=== PATIENT | female | born 1960 | race Caucasian/White ===

== ENCOUNTER → 2020-06-27 12:35 | Outpatient (CLI) | payer OTHER, SELFPAY ==
--- NOTE | 2020-06-27 | IMM_PTH ---
PATIENT: FAVIAN READ LOC: [facility] U#:[id number] AGE/SX: 64/F ROOM: RE06/27/[address]: NOEMY Stone : 1960 BED: DIS: SPEC #: [id number] RECD: 06/28/20 13:35 STATUS: MARTHA RETavon #: [id number] JENNY: 06/27/20 00:[address]: Izabela Meade NP DEPT: IMMUNOHISTOCHEMISTRY RECD BY: Michelle Schofield ENTERED: 06/28/20 13:35 SP TYPE: IMMUNO OTHR DR: No Primary Care Phys Tissues: Endometrium, NOS Procedures: p16 (initial) KI-67 (add) PHYSICIAN & INSTITUTION [place] [id number] SPECIMEN INFORMATION: Tissue Source: Endometrial biopsy Clinical Info: PMB Specimen Number: [id number] CPT code: 19512, 93541 METHODOLOGY: Deparaffinized sections of prefer/formalin-fixed tissue or PAP/DQ stained slides are incubated with monoclonal/polyclonal antibodies/oligonucleotide probes. Localization is made via biotin free immunoperoxidase method. Appropriate controls are performed and reacted as expected. Results on target cell population are indicated in the following table: RESULTS: ANTIBODY / CLONE RESULT P16 (E6H4) negative Ki-67 (30-9) positive, low These tests were developed and their performance characteristics determined by [facility]. They may not have been cleared or approved by the U.S. Food and Drug Administration. The FDA has determined that such clearance or approval is not necessary. The above immunohistochemical/dualISH markers are ordered and reviewed by the Pathologist. INTERPRETATION: Endometrial biopsy: Squamous mucosal fragment with no evidence of dysplasia. AM:gely 06/29/2020
--- NOTE | 2020-06-27 10:30 | EMB_PTH ---
PATIENT: FAVIAN READ LOC: [facility] U#:[id number] AGE/SX: 64/F ROOM: RE06/27/[address]: NOEMY Stone : 1960 BED: DIS: SPEC #: [id number] RECD: 06/27/20 12:12 STATUS: MARTHA LADARIUS #: [id number] JENNY: 06/27/20 10:[address]: Izabela Meade NP DEPT: SURGICAL PATHOLOGY RECD BY: Adrienne Deleon ENTERED: 06/27/20 12:45 SP TYPE: ENDOM BX/C IMELDA DR: Sindi Primary Care Phys Tissues: Endometrium, NOS Procedures: Surgery Specimen Level IV HEADER OPERATION: Endometrial biopsy PRE-OP DIAGNOSIS: PMB TISSUE SUBMITTED: Endometrial biopsy MICROSCOPIC DIAGNOSIS Endometrium, biopsy: Simple to focal complex hyperplasia with focal cytologic atypia. Detached fragment of squamous epithelium with mild atypia. AM:gely 06/28/2020 COMMENT Results from immunohistochemistry ([id number]) for surrogate HPV marker (p16) will be reported separately. Case has been reviewed in consultation with Dr. White who concurs with the above diagnosis. IDC:SJ MICROSCOPIC DESCRIPTION Slides are reviewed. GROSS DESCRIPTION Received is one container labeled with the patient's name and not further designated. The specimen consists of multiple fragments of pink hemorrhagic soft tissue that in aggregate measure 2.5 x 2 x 0.3 cm. The specimen is totally submitted in one cassette. / GEORGE:gely 06/27/20 TC:? CPT: 71821
[2020-06-27 11:54] VITALS: BMI 38.7
[2020-06-29 18:04] LABS: HPV APTIMA, High Risk Positive (Negative)
== END ==
PROVIDERS: Referring Provider Nurse Practitioner Women's Health; Visit Provider Nurse Practitioner Women's Health
DX: Z12.4 Encounter for screening for malignant neoplasm of cervix (principal)
CPT/HCPCS: 87624; 88175; 88305; 88341; 88342; G0145

== ENCOUNTER → 2020-06-28 11:08 | Outpatient (CLI) | payer OTHER, SELFPAY ==
[2020-06-28 10:18] VITALS: BMI 38.8
[2020-06-28 12:14] LABS: Absolute Lymphocyte Count 1.33 X10^3/uL (0.83-4.51); Absolute Neutrophil Count 4.1 X10^3/uL (2.0-7.7); Basophil# 0.05 X10^3/uL; Basophil% 0.8 % (0-1); Eosinophil# 0.29 X10^3/uL; Eosinophils% 4.6 % (0-5); Hematocrit 40.1 % (37-47); Hemoglobin 13.3 g/dL (12.0-15.0); Lymphocyte # 1.33 X10^3/ul (4.0); Lymphocyte % 21.2 % (19-41); Mean Corp Hgb Conc 33.2 g/dL (32-36); Mean Corpuscular Hgb 30.4 pg (27.0-32.0); Mean Corpuscular Volume 91.6 fL (81-99); Mean Platelet Vol. 10.9 fl (6.2-12.0); Monocyte# 0.45 X10^3/uL; Monocyte% 7.2 % (0-10); NRBC Flagged by Analyzer 0 % (0-5); Neutrophil # 4.13 X10^3/uL (2.7-7.7); Neutrophil % 65.7 % (47-70); Platelet Count 268 K/mm3 (150-450); RBC Distribution Width SD 43.2 fl (35.1-43.9); Red Blood Count 4.38 M/mm3 (4.2-5.4); White Blood Count 6.3 K/mm3 (4.4-11.0)
[2020-06-28 12:35] LABS: ALB/GLOB Ratio 1.1 RATIO (0.9-2.4); AST(SGOT) 29 U/L (15-37); Alanine Aminotransfer ALT/SGPT 51 U/L (13-56); Albumin, Serum 4.1 g/dL (3.2-5.0); Alkaline Phosphatase 109 U/L (45-117); Anion Gap 7 (5-15); BUN 13 mg/dL (7-18); BUN/Creat Ratio 12.7 RATIO (10-20); Calcium,Total 9.3 mg/dL (8.5-10.1); Chloride 104 mmol/L (98-107); Cholesterol 217 mg/dL (200); Creatinine, Serum 1.02 mg/dL (0.55-1.02); EST Glomerular Filtration Rate 59 mL/min (>60); Est Glom Filt Rate - Afr Amer 71 mL/min (>60); Globulin 3.8 g/dL (2.2-4.2); Glucose 107 mg/dL (74-106); High Density Lipoprotein 45 mg/dL; Potassium 3.6 mmol/L (3.5-5.1); Protein, Total 7.9 g/dL (6.4-8.2); Sodium Level 141 mmol/L (136-145); T4 Free Direct 0.93 ng/dL (0.76-1.46); Thyroid Stim Hormone (TSH) 5.12 uIU/mL (0.358-3.74); Triglycerides 213 mg/dL; Very Low Density Lipoprotein 43 mg/dL (5-40)
[2020-06-28 12:43] LABS: Hemoglobin A1c 5.1 % (3.8-5.6)
== END ==
PROVIDERS: PCP Internal Medicine; Referring Provider Internal Medicine; Visit Provider Internal Medicine
DX: I10 Essential (primary) hypertension (principal); E66.9 Obesity, unspecified
CPT/HCPCS: 36415; 80053; 80061; 83036; 84439; 84443; 85025

== ENCOUNTER → 2020-08-23 13:04 | Outpatient (CLI) | payer OTHER, SELFPAY ==
[2020-08-23 12:39] VITALS: BMI 38.0
[2020-08-23 15:37] LABS: Anion Gap 6 (5-15); BUN 12 mg/dL (7-18); BUN/Creat Ratio 10.7 RATIO (10-20); Calcium,Total 9.7 mg/dL (8.5-10.1); Chloride 100 mmol/L (98-107); Creatinine, Serum 1.12 mg/dL (0.55-1.02); EST Glomerular Filtration Rate 53 mL/min (>60); Est Glom Filt Rate - Afr Amer 64 mL/min (>60); Glucose 100 mg/dL (74-106); Potassium 4.6 mmol/L (3.5-5.1); Sodium Level 138 mmol/L (136-145)
== END ==
PROVIDERS: Physician Assistant; PCP Internal Medicine; Visit Provider Internal Medicine
DX: I10 Essential (primary) hypertension (principal)
CPT/HCPCS: 36415; 80048

== ENCOUNTER → 2020-12-21 15:48 | Outpatient (CLI) | payer OTHER, SELFPAY ==
[2020-12-21 17:21] LABS: Anion Gap 11 (5-15); BUN 15 mg/dL (7-18); BUN/Creat Ratio 14.3 RATIO (10-20); Calcium,Total 9.8 mg/dL (8.5-10.1); Chloride 97 mmol/L (98-107); Creatinine, Serum 1.05 mg/dL (0.55-1.02); EST Glomerular Filtration Rate 57 mL/min (>60); Est Glom Filt Rate - Afr Amer 69 mL/min (>60); Glucose 117 mg/dL (74-106); Potassium 3.7 mmol/L (3.5-5.1); Sodium Level 137 mmol/L (136-145)
== END ==
PROVIDERS: PCP Internal Medicine; Referring Provider Internal Medicine; Visit Provider Internal Medicine
DX: I10 Essential (primary) hypertension (principal)
CPT/HCPCS: 36415; 80048

== ENCOUNTER → 2021-11-13 | Outpatient (CLI) | payer OTHER, SELFPAY ==
[2021-11-13 12:31] LABS: Absolute Lymphocyte Count 1.17 X10^3/uL (0.83-4.51); Absolute Neutrophil Count 3.8 X10^3/uL (2.0-7.7); Basophil# 0.06 X10^3/uL; Eosinophil# 0.26 X10^3/uL; Eosinophils% 4.5 % (0-5); Hematocrit 39.6 % (37-47); Hemoglobin 13.6 g/dL (12.0-15.0); Lymphocyte # 1.17 X10^3/ul (0.83-4.51); Lymphocyte % 20.2 % (19-41); Mean Corp Hgb Conc 34.3 g/dL (32-36); Mean Corpuscular Hgb 31.7 pg (27.0-32.0); Mean Corpuscular Volume 92.3 fL (81-99); Mean Platelet Vol. 10.8 fl (6.2-12.0); Monocyte# 0.45 X10^3/uL; Monocyte% 7.8 % (0-10); NRBC Flagged by Analyzer 0 % (0-5); Neutrophil # 3.83 X10^3/uL (2.7-7.7); Platelet Count 260 K/mm3 (150-450); RBC Distribution Width CV 13.3 % (11.6-14.6); RBC Distribution Width SD 44.9 fl (35.1-43.9); Red Blood Count 4.29 M/mm3 (4.2-5.4); White Blood Count 5.8 K/mm3 (4.4-11.0)
[2021-11-13 13:09] LABS: ALB/GLOB Ratio 1.1 RATIO (0.9-2.4); AST(SGOT) 33 U/L (15-37); Alanine Aminotransfer ALT/SGPT 61 U/L (13-56); Alkaline Phosphatase 105 U/L (45-117); Anion Gap 6 (5-15); BUN 15 mg/dL (7-18); BUN/Creat Ratio 15.6 RATIO (10-20); Calcium,Total 9.5 mg/dL (8.5-10.1); Chloride 107 mmol/L (98-107); Cholesterol 216 mg/dL (200); Creatinine, Serum 0.96 mg/dL (0.55-1.02); EST Glomerular Filtration Rate 63 mL/min (>60); Est Glom Filt Rate - Afr Amer 76 mL/min (>60); Globulin 3.8 g/dL (2.2-4.2); Glucose 109 mg/dL (74-106); High Density Lipoprotein 40 mg/dL; Potassium 3.7 mmol/L (3.5-5.1); Protein, Total 7.8 g/dL (6.4-8.2); Sodium Level 141 mmol/L (136-145); Triglycerides 204 mg/dL; Very Low Density Lipoprotein 41 mg/dL (5-40)
== END | disposition home or self-care (01) ==
LOC: BIMLAB 09:09
PROVIDERS: PCP Internal Medicine; Referring Provider Internal Medicine; Visit Provider Internal Medicine
DX: I10 Essential (primary) hypertension (principal)
CPT/HCPCS: 36415; 80053; 80061; 85025

== ENCOUNTER → 2022-12-27 | Outpatient (CLI) | payer OTHER, SELFPAY ==
[2022-12-27 16:32] LABS: Absolute Lymphocyte Count 1.52 X10^3/uL (0.83-4.51); Absolute Neutrophil Count 5.3 X10^3/uL (2.0-7.7); Basophil# 0.06 X10^3/uL; Basophil% 0.8 % (0-1); Eosinophil# 0.22 X10^3/uL; Eosinophils% 2.8 % (0-5); Hemoglobin 13.2 g/dL (12.0-15.0); Lymphocyte # 1.52 X10^3/ul (0.83-4.51); Lymphocyte % 19.7 % (19-41); Mean Corpuscular Hgb 30.4 pg (27.0-32.0); Mean Corpuscular Volume 92.2 fL (81-99); Mean Platelet Vol. 11.3 fl (6.2-12.0); Monocyte# 0.57 X10^3/uL; Monocyte% 7.4 % (0-10); NRBC Flagged by Analyzer 0 % (0-5); Neutrophil # 5.33 X10^3/uL (2.7-7.7); Neutrophil % 68.9 % (47-70); Platelet Count 244 K/mm3 (150-450); RBC Distribution Width CV 13.2 % (11.6-14.6); RBC Distribution Width SD 44.3 fl (35.1-43.9); Red Blood Count 4.34 M/mm3 (4.2-5.4); White Blood Count 7.7 K/mm3 (4.4-11.0)
[2022-12-27 18:10] LABS: ALB/GLOB Ratio 1.1 RATIO (0.9-2.4); AST(SGOT) 22 U/L (15-37); Alanine Aminotransfer ALT/SGPT 39 U/L (13-56); Albumin, Serum 4.1 g/dL (3.2-5.0); Alkaline Phosphatase 93 U/L (45-117); Anion Gap 9 (5-15); BUN 17 mg/dL (7-18); BUN/Creat Ratio 13.2 RATIO (10-20); Chloride 101 mmol/L (98-107); Cholesterol 212 mg/dL (200); Creatinine, Serum 1.29 mg/dL (0.55-1.02); EST Glomerular Filtration Rate 45 mL/min (>60); Est Glom Filt Rate - Afr Amer 54 mL/min (>60); Globulin 3.8 g/dL (2.2-4.2); Glucose 103 mg/dL (74-106); High Density Lipoprotein 44 mg/dL; Potassium 3.2 mmol/L (3.5-5.1); Protein, Total 7.9 g/dL (6.4-8.2); Sodium Level 138 mmol/L (136-145); Triglycerides 291 mg/dL; Very Low Density Lipoprotein 58 mg/dL (5-40)
== END | disposition home or self-care (01) ==
LOC: BIMLAB 15:46
PROVIDERS: PCP Internal Medicine; Visit Provider Internal Medicine
DX: I10 Essential (primary) hypertension (principal)
CPT/HCPCS: 36415; 80053; 80061; 85025

== ENCOUNTER → 2023-01-03 | Outpatient (CLI) | payer OTHER, SELFPAY ==
--- NOTE | 2023-01-03 10:26 | US_ITS ---
STUDY: ABDOMINAL ULTRASOUND - RIGHT UPPER QUADRANT REASON FOR VISIT: Female, 62 years old RUQ Tenderness TECHNIQUE: Ultrasound evaluation of the right upper quadrant was performed with real-time and static pate-scale imaging. TECHNICAL QUALITY: Limited. Examination limited by bowel gas. COMPARISON: None. FINDINGS: Liver: The liver measures 19.4 cm. There is increased echogenicity consistent with fatty infiltration. The bile ducts are within normal limits. There is hepatic color flow. The direction of portal flow is hepatopetal. There are several round anechoic structure identified within the liver, possible with liver cysts, the one in the left liver lobe seen anteriorly measuring 3.8 x 3.8 x 3.9 cm and the second seen within the right liver lobe adjacent to the dome measuring 2.2 x 2.7 x 1.7 cm. Gallbladder: Normal distended gallbladder. The gallbladder wall measures 2.2 mm. There is a negative sonographic Mitchell''s sign. There is no pericholecystic fluid. A mobile gallstone measuring 2.4 x 2.3 x 2.0 cm is seen. Common Bile Duct (C.B.D.): The common bile duct measures 3.9 mm. Pancreas: Normal size of the head, body and tail of the pancreas. There is normal echogenicity of the pancreas. There is no demonstrated pancreatic mass or cyst. Right Kidney: Normal size of the right kidney. The right kidney measures 10.4 x 4.9 x 4.5 cm. Normal renal cortex. The right cortex measures 1.3 cm. There is no demonstrated renal mass or cyst. There is no right hydronephrosis. US/Abdomen Limited IMPRESSION: Gallstone with no signs of acute cholecystitis. Diffuse fatty liver, along with liver cyst as described. Otherwise unremarkable right upper quadrant ultrasound. Electronically Signed: Emeli Medrano MD at 18:07 EDT ,
== END | disposition home or self-care (01) ==
LOC: US 10:25
PROVIDERS: PCP Internal Medicine; Referring Provider Internal Medicine; Visit Provider Internal Medicine
DX: R10.811 Right upper quadrant abdominal tenderness (principal)
CPT/HCPCS: 76705

== ENCOUNTER → 2023-01-14 | Outpatient (CLI) | payer OTHER, SELFPAY ==
[2023-01-14 16:04] LABS: Anion Gap 6 (5-15); BUN 14 mg/dL (7-18); BUN/Creat Ratio 9.3 RATIO (10-20); Calcium,Total 9.5 mg/dL (8.5-10.1); Chloride 103 mmol/L (98-107); EST Glomerular Filtration Rate 38 mL/min (>60); Est Glom Filt Rate - Afr Amer 45 mL/min (>60); Glucose 119 mg/dL (74-106); Potassium 3.7 mmol/L (3.5-5.1); Sodium Level 140 mmol/L (136-145)
== END | disposition home or self-care (01) ==
LOC: BIMLAB 14:19
PROVIDERS: PCP Internal Medicine; Referring Provider Internal Medicine; Visit Provider Internal Medicine
DX: E87.6 Hypokalemia (principal)
CPT/HCPCS: 36415; 80048

== ENCOUNTER → 2023-04-03 | Outpatient (CLI) | payer OTHER, SELFPAY ==
[2023-04-03 13:05] LABS: Anion Gap 5 (5-15); BUN 17 mg/dL (7-18); BUN/Creat Ratio 17.2 RATIO (10-20); Calcium,Total 9.2 mg/dL (8.5-10.1); Chloride 108 mmol/L (98-107); Creatinine, Serum 0.99 mg/dL (0.55-1.02); EST Glomerular Filtration Rate 60 mL/min (>60); Est Glom Filt Rate - Afr Amer 73 mL/min (>60); Glucose 106 mg/dL (74-106); Potassium 4.1 mmol/L (3.5-5.1); Sodium Level 141 mmol/L (136-145)
[2023-04-03 13:11] LABS: Vitamin D,25 Hydroxy 13.1 ng/mL
== END | disposition home or self-care (01) ==
LOC: BIMLAB 09:49
PROVIDERS: PCP Internal Medicine; Referring Provider Internal Medicine; Visit Provider Internal Medicine
DX: K52.9 Noninfective gastroenteritis and colitis, unspecified (principal); I10 Essential (primary) hypertension
CPT/HCPCS: 36415; 80048; 82306

== ENCOUNTER → 2023-05-02 | Outpatient (CLI) | payer OTHER, SELFPAY ==
--- NOTE | 2023-05-02 14:00 | BD_ITS ---
STUDY: DUAL ENERGY X-RAY ABSORPTIOMETRY / DXA REASON FOR EXAM: Female, 62 years old. Post Menopausal TECHNIQUE: Bone Mineral Density (BMD) measurements of lumbar spine and bilateral hips were obtained. COMPARISON: None. FINDINGS: Lumbar Spine (L1-L4): g/cm2 (0.967) / T-score (-0.7) / Z-score (0.8) Findings are suggestive of normal bone density with a low fracture risk. Left Femur Total: g/cm2 (0.896) / T-score (-0.4) / Z-score (0.7) Left Femoral Neck: g/cm2 (0.614) / T-score (-2.1) / Z-score (-0.8) Right Femur Total: g/cm2 (0.878) / T-score (-0.5) / Z-score (0.5) Right Femoral Neck: g/cm2 (0.679) / T-score (-1.5) / Z-score (-0.2) BD/Dexa Bone Density Study IMPRESSION: The patient is considered osteopenic as outlined below according to World Daren Organization (WHO) criteria with a high fracture risk. Reference Information: The T-score is the number of standard deviations above or below the standard which is normal for young adults at their peak bone mineral density. The World Health Organization (WHO) interprets the T-scores as follows: Above -1 Normal bone density Between -1 and -2.5 Osteopenia Equal to / or below -2.5 Osteoporosis As a practical clinical guideline, osteopenia may be graded as follows: Mild -1 through -1.5 Moderate -1.6 through -2.0 Severe -2.1 through -2.4 The Z-score is the number of standard deviations above or below age-matched controls. A Z-score of less than -1.5 would be considered abnormal. References: 1. NIH Osteoporosis and Related Bone Diseases www osteo.org 2. International Society for Clinical Densitometry www iscd.org 3. National Osteoporosis Foundation www nof.org Electronically Signed: Dain Marks MD at 8:55 EST ,
--- OUTSIDE RECORDS SUMMARY | 2023-05-02 16:39 | XMS RPT_ITS | CCD ---
Author Name Unknown Address [address] [place] [address] Organization [facility] Care Team Providers Care Cane Burner Name Role Phone Unavailable Primary Care Provider Unavailabl e Oleghe, Efewongbe B Primary Care Provider Oleghe, Efewongbe B Primary Care Provider Heather SENIOR ANDROID SOFTWARE ENGINEER - ENTERTAINMENT USHER, Yvrose Unavailable [phone] Crystal SENIOR ANDROID SOFTWARE ENGINEER - ENTERTAINMENT USHER Jessica Unavailable [phone] Unavailable Primary Care Provider Unavailabl e OLEGHE, EFEWONGBE Primary Care Unavailable CRYSTAL, JESSICA Attending Unavailable OLEGHE, EFEWONGBE Primary Care Unavailable CRYSTAL, JESSICA Attending Unavailable CRYSTAL, JESSICA Attending Unavailable CRYSTAL, JESSICA Referring Unavailable OLEGHE, EFEWONGBE Primary Care Unavailable CRYSTAL, JESSICA Referring Unavailable OLEGHE, EFEWONGBE Primary Care Unavailable CRYSTAL, JESSICA Attending Unavailable Allergies Allergy Classification Reported Allergen(s) Allergy Type Date of Onset Reaction(s) Facility NSAIDs (4 sources) [facility] Drug Allergy 1 [facility] (5 sources) Propoxyphene Drug Allergy 1 Other (See Comments) [facility] (3 sources) Propoxyphene Drug Allergy 1 Other (See Comments), Other: See Comments [facility] Work Phone: (2 sources) Ibuprofen Drug Allergy 1 Unknown [facility] (1 source) Morphinan opioid Propensity to adverse reactions to drug 3 Other: See Comments [facility] Medications Current Medications Medication Drug Class(es) Dates Sig (Normalized) Sig (Original) acetaminophen 500 mg oral tablet (5 sources) Start: 05-04-2021 take 2 tablets by mouth every six hours as needed for pain acetaminophen (TYLENOL) 500 MG tablet Take 2 tablets by mouth every 6 hours as needed for Pain 30 tablet 0 07/26/2020 Active Completed/Discontinued Medications Medication Drug Class(es) Dates Sig (Normalized) Sig (Original) aprepitant 40 mg oral capsule (2 sources) Substance P/Neurokinin-1 Receptor Antagonist Start: 07-26-2020 End: 07-26-2020 aprepitant (EMEND) capsule 40 mg Problems Active Problems Problem Classification Problem Date Documented Da te Episodic/Chronic Abdominal pain (1 source) Abdominal pain; Translations: [Unspecified abdominal pain] 11-25-2022 Episodic Cancer of uterus (2 sources) Malignant neoplasm of endometrium of corpus uteri ; Translations: [Malignant neoplasm of endometrium] Chronic Genitourinary symptoms and ill-defined conditions (1 source) Dysuria; Translations: [Dysuria] 11-25-2022 Episodic Other gastrointestinal disorders (1 source) Diarrhea; Translations: [Diarrhea, unspecified] 11-25-2022 Episodic Past or Other Problems Problem Classification Problem Date Documented Da te Episodic/Chronic Nonmalignant breast conditions (2 sources) Mastodynia; Translations: [Mastodynia] Onset: 04-20-2022 Episodic Other and unspecified benign neoplasm (1 source) Adenomatous polyp of colon ; Translations: [Benign neoplasm of descending colon] Onset: 03-03-2021 01-05-2022 Episodic Other screening for suspected conditions (not mental disorders or infectious disease) (3 sources) Mammography abnormal; Translations: [Other abnormal and inconclusive findings on diagnostic imaging of breast] Onset: 04-03-2022 Episodic Results Test Name Value Interpretation Reference Range Facil ity Vital Signs Date Time Vital Sign Value Performing Clinician Nida castillo 11-25-2022 11:31-0400 Body temperature 98.1 [degF] Serenity Lopez APRN.CNP Work Phone: [facility] 11-25-2022 11:31-0400 Body weight 86.09 kg Serenity Lopez APRN.CNP Work Phone: [facility] 11-25-2022 11:31-0400 Diastolic blood pressure 97 mm[Hg] Serenity Lopez APRN.CNP Work Phone: [facility] 11-25-2022 11:31-0400 Heart rate 77 /min Serenity Lopez SENIOR ANDROID SOFTWARE ENGINEER.ENTERTAINMENT USHER Work Phone: [facility] 11-25-2022 11:31-0400 SaO2% (BldA) [Mass fraction] 98 % Serenity Lopez SENIOR ANDROID SOFTWARE ENGINEER.ENTERTAINMENT USHER Work Phone: [facility] 11-25-2022 11:31-0400 Systolic blood pressure 150 mm[Hg] Serenity Lopez SENIOR ANDROID SOFTWARE ENGINEER.ENTERTAINMENT USHER Work Phone: [facility] 07-17-2022 11:24-0400 Body height 152.4 cm Jessica Bolañosod SENIOR ANDROID SOFTWARE ENGINEER - ENTERTAINMENT USHER Work Phone: [facility] 07-17-2022 11:24-0400 Body mass index (BMI) [Ratio] 36.72 kg/m2 Jessica Crystal SENIOR ANDROID SOFTWARE ENGINEER - ENTERTAINMENT USHER Work Phone: [facility] 07-17-2022 11:24-0400 Body weight 85.28 kg Jessica Bolañosod SENIOR ANDROID SOFTWARE ENGINEER - ENTERTAINMENT USHER Work Phone: [facility] 07-17-2022 11:24-0400 Diastolic blood pressure 86 mm[Hg] Jessica Crystal SENIOR ANDROID SOFTWARE ENGINEER - ENTERTAINMENT USHER Work Phone: [facility] 07-17-2022 11:24-0400 Heart rate 82 /min Jessica Crystal SENIOR ANDROID SOFTWARE ENGINEER - ENTERTAINMENT USHER Work Phone: [facility] 07-17-2022 11:24-0400 Systolic blood pressure 162 mm[Hg] Jessica Crystal SENIOR ANDROID SOFTWARE ENGINEER - ENTERTAINMENT USHER Work Phone: [facility] 07-26-2020 13:00-0400 Diastolic blood pressure 81 mm[Hg] Viktor Ventura MD Work Phone: [facility] Work Phone: 07-26-2020 13:00-0400 Heart rate 69 /min Viktor Ventura MD Work Phone: [facility] Work Phone: 07-26-2020 13:00-0400 Respiratory rate 16 /min Viktor Ventura MD Work Phone: [facility] Work Phone: 07-26-2020 13:00-0400 Systolic blood pressure 117 mm[Hg] Viktor Ventura MD Work Phone: [facility] Work Phone: 07-26-2020 12:24-0400 Body temperature 97 [degF] Viktor Ventura MD Work Phone: [facility] Work Phone: 07-26-2020 12:24-0400 SaO2% (BldA) [Mass fraction] 95 % Viktor Ventura MD Work Phone: [facility] Work Phone: 07-19-2020 13:15-0400 Diastolic blood pressure 98 mm[Hg] Viktor Ventura MD Work Phone: [facility] Work Phone: 07-19-2020 13:15-0400 Systolic blood pressure 144 mm[Hg] Viktor Ventura MD Work Phone: [facility] Work Phone: 07-19-2020 12:49-0400 Body temperature 99 [degF] Viktor Ventura MD Work Phone: [facility] Work Phone: 07-19-2020 12:49-0400 Heart rate 98 /min Viktor Ventura MD Work Phone: [facility] Work Phone: 07-19-2020 12:49-0400 Respiratory rate 22 /min Viktor Ventura MD Work Phone: [facility] Work Phone: 07-19-2020 12:49-0400 SaO2% (BldA) [Mass fraction] 98 % Viktor Ventura MD Work Phone: [facility] Work Phone: 07-19-2020 12:47-0400 Body height 152.4 cm Viktor Ventura MD Work Phone: [facility] Work Phone: 07-19-2020 12:47-0400 Body mass index (BMI) [Ratio] 37.85 kg/m2 Viktor Ventura MD Work Phone: [facility] Work Phone: 07-19-2020 12:47-0400 Body weight 87.91 kg Viktor Ventura MD Work Phone: [facility] Work Phone: 07-11-2020 18:00-0400 Diastolic blood pressure 98 mm[Hg] Viktor Ventura MD Work Phone: [facility] Work Phone: 07-11-2020 18:00-0400 Heart rate 68 /min Viktor Ventura MD Work Phone: [facility] Work Phone: 07-11-2020 18:00-0400 Respiratory rate 18 /min Viktor Ventura MD Work Phone: [facility] Work Phone: 07-11-2020 18:00-0400 SaO2% (BldA) [Mass fraction] 99 % Viktor Ventura MD Work Phone: [facility] Work Phone: 07-11-2020 18:00-0400 Systolic blood pressure 136 mm[Hg] Viktor Ventura MD Work Phone: [facility] Work Phone: 07-11-2020 16:48-0400 Body temperature 97 [degF] Viktor Ventura MD Work Phone: [facility] Work Phone: 07-11-2020 12:31-0400 Body height 152.4 cm Viktor Ventura MD Work Phone: [facility] Work Phone: 07-11-2020 12:31-0400 Body mass index (BMI) [Ratio] 38.51 kg/m2 Viktor Ventura MD Work Phone: [facility] Work Phone: 07-11-2020 12:31-0400 Body weight 89.45 kg Viktor Ventura MD Work Phone: [facility] Work Phone: 07-07-2020 11:30-0400 BP Diastolic 115 mm[Hg] Viktor BREAUX Work Phone: 07-07-2020 11:30-0400 BP Systolic 177 mm[Hg] Viktor BREAUX Work Phone: 07-07-2020 11:30-0400 Pulse (Heart Rate) 84 /min Viktor BREAUX Work Phone: 07-07-2020 11:30-0400 Pulse Oximetry 96 % Viktor BREAUX Work Phone: 07-07-2020 11:19-0400 BMI (Body Mass Index) 38.51 kg/m2 Viktor BREAUX Work Phone: 07-07-2020 11:19-0400 Body Temperature 98.2 [degF] Viktor BREAUX Work Phone: 07-07-2020 11:19-0400 Body weight 89.45 kg Viktor BREAUX Work Phone: 07-07-2020 11:19-0400 Height 152.4 cm Viktor BREAUX Work Phone: Encounters Encounter Date Encounter Type Care Provider Facility Start: 01-14-2023 End: 01-14-2023 ambulatory [facility] Start: 11-25-2022 End: 11-25-2022 ambulatory Facility:[facility] Start: 11-25-2022 End: 11-25-2022 Office outpatient new 20 minutes Serenity Lopez SENIOR ANDROID SOFTWARE ENGINEER.ENTERTAINMENT USHER Work Phone: [facility] Procedures Date Procedure Procedure Detail Performing Clinician Start: 11-25-2022 Urnls dip stick/tabl et rgnt auto w/o microscopy [facility] Provider Start: 07-17-2022 Follow-up visit Follow-up JESSICA ROJAS Start: 04-20-2022 Mammography Jessicaseymour schaefer SENIOR ANDROID SOFTWARE ENGINEER - ENTERTAINMENT USHER Work Phone: Start: 03-02-2021 Colonoscopy Jessica Bolañostangela schaefer SENIOR ANDROID SOFTWARE ENGINEER - ENTERTAINMENT USHER Work Phone: Start: 10-07-2020 Us breast uni real t [place] with image limited Viktor Ventura MD Work Phone: Start: 07-26-2020 OPERATIVE REPORT 3m Sca nning Start: 07-19-2020 Antibody screen Viktor Adames MD Work Phone: Start: 07-19-2020 Radiologic exam ches t 2 views Viktor Ventura MD Work Phone: Start: 07-19-2020 Basic metabolic pane l calcium total Nayeli Veronica Mosquera SENIOR ANDROID SOFTWARE ENGINEER - ENTERTAINMENT USHER Work Phone: Start: 07-19-2020 Immunoassay tumor an tigen quantitative ca 125 Viktor Ventura MD Work Phone: Start: 07-11-2020 OPERATIVE REPORT 3m Sca nning Start: 07-07-2020 Ecg routine ecg w/le ast 12 lds w/i&r Alyciamakayla Nash Work Phone: H/O: hysterectomy S/P hysterectomy Viktor Ventura MD Work Phone: Plan of Treatment Date Care Activity Detail Author Start: 03-02-2031 Screening for malignant neoplasm of colon [employer] Start: 04-20-2023 Screening for malignant neoplasm of breast Mammogram [employer] Start: 01-14-2023 End: 01-14-2023 Patient encounter procedure 01/14/2023 Office Visit Gynecologic Oncology Crystal, Jessica, SENIOR ANDROID SOFTWARE ENGINEER - ENTERTAINMENT USHER [address] [facility] [address] [place] [address] [facility] Gynecologic Oncology Start: 11-23-2022 Influenza vaccination [facility] Start: 03-25-2022 DEPRESSION ASSESSMENT DEPRESSION ASSESSMENT [facility] Start: 09-22-2021 Screening for malignant neoplasm of breast Breast cancer screen [facility] Work Phone: Start: 07-19-2021 Creatinine measurement Creatinine monitoring [facility] Work Phone: Start: 07-19-2021 Potassium monitoring Potassium monitoring [facility] Work Phone: Start: 06-08-2021 COVID-19 Vaccine (4 - Booster for Moderna series) COVID-19 Vaccine (4 - Booster for Moderna series) [facility] Start: 06-08-2021 COVID-19 VACCINE (4 - Moderna series) COVID-19 VACCINE (4 - Moderna series) [facility] Start: 12-20-2020 End: 12-20-2020 Patient encounter procedure 12/20/2020 Office Visit Gynecologic Oncology Viktor Ventura MD [address] [facility] [address] [place], [address] [place] [address] [phone] [facility] [place] [employer] Oncology Start: 11-23-2020 Influenza vaccination [facility] Work Phone: Start: 10-21-2020 End: 10-21-2020 Patient encounter procedure 10/21/2020 Appointment Radiology [facility] Start: 10-21-2020 End: 10-21-2020 Patient encounter procedure 10/21/2020 Office Visit Breast Clinic / Breast Center Lita Bartlett MD [facility] [address] [facility] [address] [place] [address] [phone] [facility] Start: 08-11-2020 End: 08-11-2020 Patient encounter procedure 08/11/2020 Office Visit Gynecologic Oncology Viktor Ventura MD [address] [facility] [address] [place] [place] [address] [phone] [facility] [place] [employer] Oncology Start: 07-26-2020 End: 07-26-2020 Patient encounter procedure 07/26/2020 Appointment General Surgery Viktor Ventura MD [address] [facility] [place] [address] [phone] [facility] General Surgery Start: 07-25-2020 End: 07-25-2020 Office Visit 07/25/2020 Office Visit Gynecologic Oncology Danyelle Cornejo PA [address] [facility] [address] [place] [id number] [facility] [place] [employer] Oncology Start: 07-11-2020 Hospital Encounter 07/11/2020 Hospital Encounter General Surgery Viktor Ventura MD [address] [place] [address] [phone] [facility] General Surgery Start: 02-13-2019 Zoster Vaccines (2 of 2) Zoster Vaccines (2 of 2) [facility] Start: 07-24-2011 Screening for malignant neoplasm of colon Colon cancer screen colonoscopy [facility] Work Phone: Start: 07-24-2011 Screening for malignant neoplasm of lung Low dose CT lung screening [facility] Work Phone: Start: 07-24-2011 Shingles Vaccine (1 of 2) Shingles Vaccine (1 of 2) [facility] Work Phone: Start: 07-24-2011 SHINGRIX VACCINE (1 of 2) SHINGRIX VACCINE (1 of 2) [facility] Start: 2006 COLOGUARD (FIT-DNA) COLOGUARD (FIT-DNA) [facility] Start: 2006 Colonoscopy COLONOSCOPY [facility] Start: 2006 COLORECTAL CANCER SCREENING COLORECTAL CANCER SCREENING [facility] Start: [address] COLONOGRAPHY [facility] Start: 2006 DIABETES SCREEN DIABETES SCREEN [facility] Start: 2006 FECAL OCCULT BLOOD FECAL OCCULT BLOOD [facility] Start: 2006 LIPID SCREEN LIPID SCREEN [facility] Start: 2006 Screening for malignant neoplasm of colon Colon cancer screen colonoscopy [facility] Work Phone: Start: 2006 SIGMOIDOSCOPY SIGMOIDOSCOPY [facility] Start: 2001 Diabetes screen Diabetes screen [facility] Work Phone: Start: 2001 Lipid panel Lipid screen [facility] Work Phone: Start: 2001 Mammography MAMMOGRAM [facility] Start: 2001 Screening for malignant neoplasm of breast Breast cancer screen [facility] Work Phone: Start: 07-24-1991 HPV TESTING HPV TESTING [facility] Start: 1982 PAP TESTING PAP TESTING [facility] Start: 1982 Screening for malignant neoplasm of cervix Cervical cancer screen [facility] Work Phone: Start: 1980 DTaP/Tdap/Td vaccine (1 - Tdap) DTaP/Tdap/Td vaccine (1 - Tdap) [facility] Work Phone: Start: 1980 DTaP/Tdap/Td Vaccines (1 - Tdap) DTaP/Tdap/Td Vaccines (1 - Tdap) [facility] Start: 1980 Urine microalbumin profile DTAP,TDAP,TD (1 - Tdap) [facility] Start: 07-24-1979 Hepatitis C screening Hepatitis C Screening [facility] Start: 07-24-1979 HEPATITIS C SCREENING HEPATITIS C SCREENING [facility] Start: 07-24-1979 HIV SCREENING HIV SCREENING [facility] Start: 1977 COVID-19 Vaccine (1) COVID-19 Vaccine (1) [facility] Work Phone: Start: 1976 HIV screening HIV screen [facility] Work Phone: Start: 1973 COVID-19 Vaccine (1) COVID-19 Vaccine (1) [facility] Work Phone: Start: 1962 MMR Vaccines (1 of 1 - Standard series) MMR Vaccines (1 of 1 - Standard series) [facility] Start: 1961 Creatinine measurement Creatinine monitoring [facility] Work Phone: Start: 1961 Hepatitis B Vaccines (1 of 3 - 3-dose series) Hepatitis B Vaccines (1 of 3 - 3-dose series) [facility] Start: 1961 Hepatitis C screening Hepatitis C screen [employer] Phone: Start: 1961 HIV screening HIV Screening [facility] Start: 1961 Lipid panel Lipid Panel [facility] Start: 1961 Potassium monitoring Potassium monitoring [facility] Work Phone: Start: 1961 Screening for malignant neoplasm of colon [facility] Bacteria identified in Urine by Culture URINE CULTURE Microbiology Routine Dysuria Ordered: 11/25/2022 [facility] Work Phone: Immunizations Immunization Date Immunization Notes Care Provider Vance hodge 04-13-2021 influenza virus vacc ine, unspecified formulation Jessica Rojas SENIOR ANDROID SOFTWARE ENGINEER - ENTERTAINMENT USHER Work Phone: [facility] Payers Date Payer Category Payer Private Health Insurance [id number] 2020 Private Health Insurance [id number] Social History Date Type Detail Facility Start: 07-07-2020 End: 04-03-2022 Tobacco smoking status NHIS Former smoker [facility] End: 03-25-2015 History of tobacco use Current smoker [employer] Phone: End: 03-25-2015 History of tobacco use Cigarette Smoker [employer] Phone: Start: 07-07-2020 End: 04-03-2022 Cigarettes smoked current (pack per day) - Reported [employer] Phone: Start: 07-07-2020 End: 04-03-2022 Tobacco use and exposure Never used [facility] Work Phone: Start: 07-07-2020 End: 04-20-2022 Alcohol intake Current drinker of alcohol (finding) [facility] Work Phone: Start: 07-07-2020 Alcohol Comment 4 drinks weekly [facility] Work Phone: Start: 1960 Sex Assigned At Not on file [facility] Work Phone: Start: 07-07-2022 End: 07-17-2022 Exposure to SARS-CoV-2 (event) Not sure [facility] Work Phone: Tobacco smoking stat [facility] Tobacco smoking consumption unknown [facility] Gender identity Not on file [facility] Clinical Notes 07-11-2020 to 11-25-2022 Patient InstructionsSerenity Lopez APRN.CNP - 11/25/2022 11:34 AM ISAAC Delong CNP - 07/17/2022 11:30 AM Cindy Bullard RN - 07/26/2020 2:21 PM EDTInstructionsInstructionsAttachments Note Date & Type Note Facility 11-25-2022 Note HNO ID: [id number] Author: Serenity Lopez APRN.MARIUM Service: ? Author Type: Nurse Practitioner Type: Progress Notes Filed: 11/25/2022 12:01 PM Note Text: This note was created using [employer]. Subjective Favian Read is a 62 year old female. HPI by patient: Favian is a 62 year old presenting to the office with the complaint of abdominal pain Started approximately Saturday Associated symptoms include abdominal pain that started Saturday, also had some diarrhea Saturday night. Ab pain radiates to pelvic area and is worse during urination. No new foods but did go to [employer] recently. Has not been around anyone sick recently. Woke up drenched in sweat so may have had a fever Denies any other concerns Covid Immunization Dates Overdue - COVID-19 VACCINE (4 - Moderna series) Overdue since 06/08/2021 04/13/2021 Outside Immunization: COVID-19, mRNA, LNP-S, PF, 100 mcg/0.5mL dose or 50 mcg/0.25mL dose 07/06/2020 Outside Immunization: COVID-19, mRNA, LNP-S, PF, 100 mcg/0.5mL dose or 50 mcg/0.25mL dose 06/08/2020 Outside Immunization: COVID-19, mRNA, LNP-S, PF, 100 mcg/0.5mL dose or 50 mcg/0.25mL dose ALLERGIES Not on File No family history on file. Review of Systems Constitutional: Negative for chills and fever. Gastrointestinal: Positive for abdominal pain and diarrhea. Negative for nausea and vomiting. Genitourinary: Positive for pelvic pain. Negative for dysuria, flank pain, frequency, hematuria, urgency and vaginal discharge. Allergic/Immunologic: Negative for immunocompromised state. Objective Wt 86.1 kg (189 lb 12.8 oz) Physical Exam Vitals and nursing note reviewed. Constitutional: Appearance: She is well-developed. Cardiovascular: Rate and Rhythm: Normal rate and regular rhythm. Heart sounds: Normal heart sounds. Pulmonary: Effort: Pulmonary effort is normal. Breath sounds: Normal breath sounds. Abdominal: General: Bowel sounds are normal. Palpations: Abdomen is soft. Tenderness: There is no abdominal tenderness. Skin: General: Skin is warm and dry. Neurological: Mental Status: She is alert and oriented to person, place, and time. Assessment and Plan ASSESSMENT/PLAN: 1. Dysuria - ICD9: 788.1, ICD10: R30.0 (primary diagnosis) acute - Patient education for prevention given - URINE CULTURE - ED for any worsening symptoms - Follow up with PCP if needed 2. Abdominal pain, unspecified abdominal location - ICD9: 789.00, ICD10: R10.9 - [place] low residue diet - Follow up with PCP if no improvement 3. Diarrhea, unspecified type - ICD9: 787.91, ICD10: R19.7 - [place] diet, imodium as needed Serenity Lopez APRN.MARIUM Medical Decision Making: Problems: Moderate: New problem with uncertain prognosis Data: Unique test(s) ordered: 2 Risk: Low: Low risk from testing/treatment Medical Decision Making Level: 3 - Low [facility] 11-25-2022 Instructions Serenity Lopez APRN.CNP - 11/25/2022 11:36 AM EDT -Increase fluids. Focus on clears. -Decrease sugary drink intake. Minimize caffeine. -Wipe front to back. No tight clothing. No bubble baths. -Results will be released to [facility] unless there is a need for a change in medication. -If no improvement in 3-5 days please be re-seen. -Be seen immediately or go to the ER with worsening/warning symptoms. Warning symptoms include: chills, severe flank pain, severe abdominal/pelvic pain, fevers 101 or higher, chest pain, and respiratory distress. Certain foods and beverages might irritate your bladder, including: Coffee, tea and carbonated drinks, even without caffeine. Alcohol. Certain acidic fruits -- oranges, grapefruits, abelino and limes -- and fruit juices. Spicy foods. Tomato-based products. Carbonated drinks. Chocolate. documented in this encounter [facility] 11-25-2022 History of Present illness Narrative This note was created using [employer]. Subjective Favian Read is a 62 year old female. HPI by patient: Favian is a 62 year old presenting to the office with the complaint of abdominal pain Started approximately Saturday Associated symptoms include abdominal pain that started Saturday, also had some diarrhea Saturday night. Ab pain radiates to pelvic area and is worse during urination. No new foods but did go to [facility] [employer] recently. Has not been around anyone sick recently. Woke up drenched in sweat so may have had a fever Denies any other concerns Covid Immunization Dates Overdue - COVID-19 VACCINE (4 - Moderna series) Overdue since 06/08/2021 04/13/2021 Outside Immunization: COVID-19, mRNA, LNP-S, PF, 100 mcg/0.5mL dose or 50 mcg/0.25mL dose 07/06/2020 Outside Immunization: COVID-19, mRNA, LNP-S, PF, 100 mcg/0.5mL dose or 50 mcg/0.25mL dose 06/08/2020 Outside Immunization: COVID-19, mRNA, LNP-S, PF, 100 mcg/0.5mL dose or 50 mcg/0.25mL dose ALLERGIES Not on File No family history on file. Review of Systems Constitutional: Negative for chills and fever. Gastrointestinal: Positive for abdominal pain and diarrhea. Negative for nausea and vomiting. Genitourinary: Positive for pelvic pain. Negative for dysuria, flank pain, frequency, hematuria, urgency and vaginal discharge. Allergic/Immunologic: Negative for immunocompromised state. Objective Wt 86.1 kg (189 lb 12.8 oz) Physical Exam Vitals and nursing note reviewed. Constitutional: Appearance: She is well-developed. Cardiovascular: Rate and Rhythm: Normal rate and regular rhythm. Heart sounds: Normal heart sounds. Pulmonary: Effort: Pulmonary effort is normal. Breath sounds: Normal breath sounds. Abdominal: General: Bowel sounds are normal. Palpations: Abdomen is soft. Tenderness: There is no abdominal tenderness. Skin: General: Skin is warm and dry. Neurological: Mental Status: She is alert and oriented to person, place, and time. Assessment and Plan ASSESSMENT/PLAN: 1. Dysuria - ICD9: 788.1, ICD10: R30.0 (primary diagnosis) acute - Patient education for prevention given - URINE CULTURE - ED for any worsening symptoms - Follow up with PCP if needed 2. Abdominal pain, unspecified abdominal location - ICD9: 789.00, ICD10: R10.9 - [place] low residue diet - Follow up with PCP if no improvement 3. Diarrhea, unspecified type - ICD9: 787.91, ICD10: R19.7 - [place] diet, imodium as needed Serenity Lopez APRN.CNP Medical Decision Making: Problems: Moderate: New problem with uncertain prognosis Data: Unique test(s) ordered: 2 Risk: Low: Low risk from testing/treatment Medical Decision Making Level: 3 - Low documented in this encounter [facility] 07-17-2022 History of Present illness Narrative Chief Complaint Patient presents with Follow-up 3 months follow up HISTORY OF THE PRESENT ILLNESS: Favian Read is a 61 y.o. 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 Normal mismatch repair proteins. No high-intermediate risk features. No adjuvant treatment indicated. She underwent robotic endometrial cancer staging surgery on 07/26/2020 and final pathology showed: Supplemental A: IMMUNOHISTOCHEMISTRY TESTING FOR MISMATCH REPAIR (MMR) PROTEIN: Block: A6 MLH1: Intact nuclear expression MSH2: Intact nuclear expression MSH6: Intact nuclear expression PMS2: Intact nuclear expression Background non-neoplastic tissue/internal control with intact nuclear expression IHC INTERPRETATION: No loss of nuclear expression of MMR proteins: low probability of microsatellite instability-high (MSI-H): low probability of Velez Syndrome. See comment below. COMMENT: There are exceptions to the above IHC interpretations. These results should not be considered in isolation, and clinical correlation with genetic counseling is recommended to assess the need for germline testing. <Sign Out Dr. Souza> SUE BOWEN M.D. DIAGNOSIS: A. 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 B. SENTINEL LYMPH NODES, LEFT PELVIC, EXCISION - TWO NEGATIVE LYMPH NODES (0/2) C. SENTINEL LYMPH NODE, RIGHT PELVIC, EXCISION - ONE NEGATIVE LYMPH NODE (0/1) Comments (Parts B&C): Ancillary pancytokeratin immunostains are negative for metastatic disease. SPECIMEN Procedure: Simple hysterectomy, bilateral salpingo-oophorectomy, and sentinel lymph node excision TUMOR Histologic Type: Endometrioid carcinoma, NOS Histologic Grade: FIGO grade 2 Myometrial Invasion: Not identified Uterine Serosa Involvement: Not identified Cervical Stromal Involvement: Not identified Other Tissue / Organ Involvement: Not identified Lymphovascular Invasion: Not identified LYMPH NODES Lymph Node Status: All lymph nodes negative for tumor cells Total Number of Pelvic Nodes Examined: 3 Number of Pelvic [place] Nodes Examined: 3 Total Number of Para-aortic Nodes Examined: 0 Number of Para-aortic [place] Nodes Examined: 0 PATHOLOGIC STAGE CLASSIFICATION (pTNM, AJCC 8th Edition) Note: Reporting of pT, pN, and (when applicable) pM categories is based on information available to the pathologist at the time the report is issued. As per the AJCC (Chapter 1, 8th Ed.) it is the managing physician's responsibility to establish the final pathologic stage based upon all pertinent information, including but potentially not limited to this pathology report. Primary Tumor (pT): pT1a Regional Lymph Nodes Modifier: (sn) Regional Lymph Nodes (pN): pN0 FIGO STAGE FIGO Stage: IA Interval History: Since the patient's last visit, she has been doing well and is without complaints. She denies abdominal pain, abdominal distension, pelvic pain, bloating, constipation, nausea, vomiting, increased abdominal girth, early satiety, weight loss, weight gain, vaginal bleeding and vaginal discharge. Discussed hot flashes and she is Taking effexor and that is helping with hot flashes and mood. Gets a little more tired but is manageable. Colonoscopy on 03/02/2021. Had multiple adenomas. Recommend repeat colonoscopy in 3 years. Mammogram on 04/20/22- normal US of left breast on 04/19/21 showed IMPRESSION: Slight interval decrease in size of biopsy proven benign left breast mass. New Granddaughter her name is Miladys. 2 grand kids one boy and one girl. Past Medical History: Diagnosis Date Cancer (CMS/HCC) ([facility]) 07/26/2020 endometrial Endometrial cancer (CMS/HCC) ([facility]) 07/26/2020 HTN (hypertension) Hyperlipidemia Migraines PMB (postmenopausal bleeding) PONV (postoperative nausea and vomiting) Past Surgical History: Procedure Laterality Date BREAST BIOPSY Left 10/21/2020 benign, US core SECTION (HISTORICAL) COLONOSCOPY 03/02/2021 Dr. Gomez DILATION AND CURETTAGE OF UTERUS 07/11/2020 hysteroscopy; Dr. Viktor Muñoz KNEE ARTHROSCOPY Left LAPAROSCOPY DIAGNOSTIC / BIOPSY / ASPIRATION / LYSIS Ovarian Cyst TOTAL ABDOMINAL HYSTERECTOMY W/ BILATERAL SALPINGOOPHORECTOMY 07/26/2020 Dr. Viktor Muñoz @[email or web address]@ Allergies as of 07/17/2022 - Reviewed 04/03/2022 Allergen Reaction Noted Propoxyphene 06/27/2020 Ibuprofen 07/19/2020 REVIEW OF SYSTEMS: As per the HPI, otherwisenegative. Vitals: 07/17/22 1124 BP: (!) 162/86 Pulse: 82 Body mass index is 36.72 kg/m . Physical Exam Constitutional: Appearance: Normal appearance. Pulmonary: Effort: Pulmonary effort is normal. Abdominal: General: Abdomen is flat. Palpations: Abdomen is soft. Comments: Well-healed robotic incisions without nodules Genitourinary: General: Normal vulva. Comments: .Uterus, cervix, bilateral adnexa surgically absent. No lesions or nodularity of the vaginal cuff, posterior cul-de-sac or rectovaginal vault. Musculoskeletal: General: Normal range of motion. Lymphadenopathy: Cervical: Right cervical: No superficial cervical adenopathy. Left cervical: No superficial cervical adenopathy. Upper Body: Right upper body: No supraclavicular adenopathy. Left upper body: No supraclavicular adenopathy. Skin: General: Skin is warm and dry. Neurological: General: No focal deficit present. Mental Status: She is alert and oriented to person, place, and time. ASSESSMENT/PLAN: 61 y.o. with s/p robotic endometrial cancer staging for stage Ia, FIGO grade 1, negative lymphovascular space invasion endometrioid endometrial adenocarcinoma. Normal mismatch repair proteins. No high-intermediate risk features. No adjuvant treatment indicated. Follow-up in 6 months. We discussed routine surveillance of disease per the NCCN guidelines with history and physical examination every 3-6 months for the first 2 years followed by every 6-12 months for years 3 through 5. We discussed the imaging will be obtained on an as-needed basis, based upon history and physical exam findings. The patient had an opportunity to ask questions, all of which were answered to the best of my ability. She is in agreement with the above noted plan. >51% of the visit was spent in direct face to face counseling and coordination of care. documented in this encounter [facility] 07-26-2020 History of Present illness Narrative Discharge information given to the patient. Patient and family verbalized understanding of information. All questions were answered before discharge. Patient ambulated, denies dizziness or nausea. Voided.Tolerating PO fluids and crackers. Vital signs are stable. Patient has changed and is being discharged home in a wheelchair with valuables. documented in this encounter [facility] [place] Phone: 07-26-2020 Hospital Discharge instructions Rudolph Dunham MD - 07/26/2020 Please see discharge instructions provided in office. documented [facility] encounter [facility] Work Phone: 07-19-2020 Hospital Discharge instructions Gifty Negrete RN - 07/19/2020 CHG shower kit and instructions given to patient. Please remember to use the night before surgery and the day of surgery. Clean sheets and clothes should be used after each use. CHECK BP AND KEEP TRACK , IF DIASTOLIC ABOVE 90 CONSISTENTLY, PLEASE CHECK WITH PCP Please bring your [facility] [employer] Surgical Information folder on the day of surgery. Please maribel the last dose taken (date and time ) on your Daily Medications List provided in your After Visit Summary. Please bring a photo ID and insurance information Do NOT take the following medications on the morning of surgery TRIAMTERENE-HYDROCHLOROTHIAZIDE TAKE the following medications the morning of your surgery NONE You may take your prescription pain medications. You may take Tylenol (Acetaminophen) if needed for pain. No Motrin, Ibuprofen, or Advil 24 hours prior to surgery, or longer if instructed by your surgeon. No Aleve or Naprosyn 3 days prior to surgery, or longer if instructed by your surgeon. If you are on BLOOD THINNERS or ASPIRIN, STOP ANY ASPIRIN 5 DAYS PRIOR Additional instructions FOLLOW ANY FURTHER INSTRUCTIONS THAT DR MUÑOZ MAY HAVE GIVEN TO YOU You will receive a reminder call the day before surgery with your Same Day Surgery arrival time. If you have specific questions, please call your surgeon. The following attachments cannot be sent through Care Everywhere.Hysterectomy: Vaginal Laparoscopic-Assisted: Post-op (Mexican)Hysterectomy: Vaginal Laparoscopic-Assisted: Pre-op (Mexican)[place] Lymph Node Biopsy (Mexican)Oophorectomy: Laparoscopic: Post-op (Mexican)Oophorectomy: Laparoscopic: Pre-op (Mexican)[facility] Work [facility]: 07-11-2020 History of Present illness Narrative Pt arrived to [place] [id number] at 1648. Attached to monitor and wall O2. VSS. documented in this encounter [facility] Work Phone: 07-11-2020 Hospital Discharge instructions Brittney Diamond DO - 07/11/2020 Please follow your post operative care instructions given to you by your Lead [facility] Oncologist's office at your pre operative visit. Please call the office with questions or concerns and be sure to follow up at your scheduled post operative visit. [facility]: documented in this encounter [facility] Work Phone: Evaluation note* Diagnosis S/P hysterectomy- Primary Acquired absence of both cervix and uterus documented in this encounter [facility] Work Phone: Evaluation note* Diagnosis Abnormal screening mammogram documented in this encounter [facility] Work Phone: Evaluation note* Diagnosis Malignant neoplasm of endometrium (HCC)- Primary Malignant neoplasm of corpus uteri, except isthmus documented in this encounter [facility]* Diagnosis Dysuria- Primary Abdominal pain, unspecified abdominal location Diarrhea, unspecified type documented in this encounter [facility] Discharge Instructions * Instructions* Mary Navarrete RN - 07/07/2020 Shower with and antibacterial soap such as Dial or Safeguard. Please bring your [facility] Surgical Information folder on the day of surgery. Please maribel the last dose taken (date and time ) on your Daily Medications List provided in your After Visit Summary. Please bring a photo ID and insurance information TAKE the following medications the morning of your surgery: MAXIDE You may take your prescription pain medications. You may take Tylenol (Acetaminophen) if needed forpain. No Motrin, Ibuprofen, or Advil 24 hours prior to surgery, or longer if instructed by your surgeon. No Aleve or Naprosyn 3 days prior to surgery, or longer if instructed by your surgeon. Do not take aspirin or aspirin containing products for 5 days before surgery, or longer if instructed by your surgeon. Follow all instructions given to you by Dr. MUÑOZ You will receive a reminder call the day before surgery with your Same Day Surgery arrival time. If you have specific questions, please call your surgeon. You may use the parking in the [employer] deck. Take the level one bridge to the building and follow the signs for same day surgery. Check in at the desk. * Attachments The following attachments cannot be sent through Care Everywhere. * Hysteroscopy: Pre-op (Mexican) documented in this encounter Advance Directives No Advanced Directives Records FoundLatest Code Status on File Code Status Date Activated Date Inactivated Comments Full Code 07/11/2020 12:31 PM Latest Code Status on File Code Status Date Activated Date Inactivated Comments Full Code 07/11/2020 12:31 PM 07/11/2020 8:13 PM Latest Code Status on File Code Status Date Activated Date Inactivated Comments Full Code 07/26/2020 9:01 AM Full Code 07/11/2020 12:31 PM 07/11/2020 8:13 PM Latest Code Status on File Code Status Date Activated Date Inactivated Comments Full Code 07/26/2020 9:01 AM 07/26/2020 5:05 PM Summary Purpose Family History No Family History Records FoundNo Family History Records FoundNo Family History Records FoundNo Family History Records Found Additional Source Comments Ordered Prescriptions (unrec ognized section and content) Prescription Sig Dispensed Refills Start Date End Da te ondansetron (ZOFRAN-ODT) 4 MG disintegrating tablet Take 1 tablet by mouth 3 times daily as needed for Nausea or Vomiting 60 tablet 0 07/26/2020 ibuprofen (ADVIL;MOTRIN) 600 MG tablet Take 1 tablet by mouth every 6 hours as needed for Pain 30 tablet 0 07/26/2020 docusate sodium (COLACE) 100 MG capsule Take 1 capsule by mouth 2 times daily 60 capsule 0 07/26/2020 08/25/2020 oxyCODONE (ROXICODONE) 5 MG immediate release tabletIndications:S/P hysterectomy Take 1 tablet by mouth every 6 hours as needed for Pain for up to 3 days. Intended supply: 3 days. Take lowest dose possible to manage pain 20 tablet 0 07/26/2020 07/29/2020 acetaminophen (TYLENOL) 500 MG tablet Take 2 tablets by mouth every 6 hours as needed for Pain 30 tablet 0 07/26/2020 INFORMATION SOURCE (unrecogn ized section and content) DATE CREATED AUTHOR AUTHOR'S ORGANIZ ATION 04/22/2021 [employer] [facility] DATE CREATED AUTHOR AUTHOR'S ORGANIZ ATION 11/26/2022 [facility] DATE CREATED AUTHOR AUTHOR'S ORGANIZ ATION 01/15/2023 [facility] Reason for Visit (unrecogniz ed section and content) Reason Comments UTI Sxs started Saturday n ight with pressure, pain when urinating, she cant cough, sneeze, laugh the pain radiates around her belly button had cervical cancer 2 years ago. Care Teams (unrecognized sec tion and content) Source Comments (unrecognize d section and content) In the event this informatio n is protected by the Federal Confidentiality of Alcohol and Drug Abuse Patient Records regulations: The Federal rules restrict any use of the information to criminally investigate or prosecute any alcohol or drug abuse patient.[facility] FOR RECORDS PERTAINING TO PATIENTS WHO ARE OR HAVE BEEN ENROLLED IN A CHEMICAL DEPENDENCY/SUBSTANCEABUSE PROGRAM, SOME INFORMATION MAY BE OMITTED. This clinical summary was aggregated from multiple sources. Caution should be exercised in using it in the provision of clinical care. This summary normalizes information from multiple sources, and as a consequence, information in this document may materially change the coding, format and clinical context of patient data. In addition, data may be omitted in some cases. CLINICAL DECISIONS SHOULD BE BASED ON THE PRIMARY CLINICAL RECORDS. [facility] [employer] [facility]. provides no warranty or guarantee of the accuracy or completeness of information in this document.
== END | disposition home or self-care (01) ==
LOC: OPBD 13:53
PROVIDERS: PCP Internal Medicine; Referring Provider Internal Medicine; Visit Provider Internal Medicine
DX: Z78.0 Asymptomatic menopausal state (principal)
CPT/HCPCS: 77080

== ENCOUNTER → 2023-09-24 | Outpatient (CLI) | payer OTHER, SELFPAY | END | disposition home or self-care (01) | LOC: BIMLAB 11:34 | PROVIDERS: PCP Internal Medicine; Referring Provider Nurse Practitioner; Visit Provider Nurse Practitioner | DX: E55.9 Vitamin D deficiency, unspecified (principal) | CPT/HCPCS: 36415; 82306 ==

== ENCOUNTER → 2024-07-13 | Outpatient (CLI) | payer OTHER, SELFPAY ==
--- NOTE | 2024-07-13 10:15 | RAD_ITS ---
EXAM: Left foot. CLINICAL HISTORY: Possible foreign body in the 4th toe. COMPARISON: None TECHNIQUE: Three views of the left foot were obtained. FINDINGS: No radiopaque foreign body is seen. The bones are unremarkable. RAD/Foot min 3 Views IMPRESSION: No acute abnormality is seen. Reading Location: [facility]
== END | disposition home or self-care (01) ==
PROVIDERS: PCP Internal Medicine; Referring Provider Physician Assistant; Visit Provider Physician Assistant
DX: S90.455A Superficial foreign body, left lesser toe(s), initial encounter (principal); L08.9 Local infection of the skin and subcutaneous tissue, unspecified; X58.XXXA Exposure to other specified factors, initial encounter
CPT/HCPCS: 73630